=== PATIENT | female | born 1990 | race Caucasian/White ===

== ENCOUNTER 2016-10-25 20:47 | Emergency (ER) | payer OTHER, MEDICAID ==
--- NOTE | 2016-10-25 21:39 | ER Document Report ---
ED Medical Screen (RME) - General Stated Complaint: DIFFICULTY BREATHING Notes: 26 yo female brought to ED for difficulty breathing. 3 breathing treatment today, parent concerned pt is still wheezing. Dx with flu Sunday, taking Tamiflu presently pt has hx/o asthma, Down's syndrome, hypothyroid pt currently clear. Sat 100% TRAVEL OUTSIDE OF THE [place] IN LAST 30 DAYS: No Past Medical History Pulmonary Medical History: Reports: Hx Asthma, Hx Bronchitis, Hx Pneumonia Endocrine Medical History: Reports: Hx Hypothyroidism Skin Medical History: Reports Hx Eczema Past Surgical History: Reports: Hx Tonsillectomy - & adenoids Physical Exam - Vital signs Vitals: Temp Pulse Resp BP Pulse Ox 97.8 F 95 16 117/97 H 100 10/25/16 21:19 10/25/16 21:19 10/25/16 21:19 10/25/16 21:19 10/25/16 21:19 Course - Vital Signs Vital signs: Temp Pulse Resp BP Pulse Ox 97.8 F 95 16 117/97 H 100 10/25/16 21:19 10/25/16 21:19 10/25/16 21:19 10/25/16 21:19 10/25/16 21:19
[2016-10-26] MEDS ORDERED: PREDNISONE 20 MG TABLET PO ONE ×2 (00:09→04:36)
[2016-10-26] MEDS ORDERED: IPRATROPIUM/ALBUTEROL 0.5-2.5 MG/3 ML AMPUL NEB ONE (00:09)
[2016-10-26] MEDS ORDERED: ALBUTEROL SULFATE 0.083% NEB 2.5 MG/3 ML AMPUL NEB SCH (00:24)
--- NOTE | 2016-10-26 03:45 | ER Document Report ---
HPI - HPI Patient complains to provider of: wheeze Onset: This afternoon Onset/Duration: Sudden Quality of pain: Achy Severity: Moderate Pain Level: 4 Context: Parents present with adult child with Down syndrome for complaints of respiratory distress wheeze. Mother reports child recently treated for the flu with Tamiflu. She reports child started complaining pain to her back. When that happens she usually needs a breathing treatment. Mom reports she started wheeze. She's received several breathing treatments at home and here. Mom reports no fever today but did have fever on October 23. Denies vomiting diarrhea. Associated Symptoms: None, Fever - 10/23/16 Exacerbated by: Denies Relieved by: Denies Similar symptoms previously: Yes Recently seen / treated by doctor: Yes - REPRODUCTIVE LMP: 10-14-16 Reproductive: DENIES: : - DERM Skin Color: Normal Past Medical History - General Information source: Patient, Parent - Social History Smoking Status: Never Smoker Chew tobacco use (# tins/day): No Frequency of alcohol use: None Drug Abuse: None Lives with: Family Family History: Reviewed & Not Pertinent Patient has suicidal ideation: No Patient has homicidal ideation: No Pulmonary Medical History: Reports: Hx Asthma, Hx Bronchitis, Hx Pneumonia Endocrine Medical History: Reports: Hx Hypothyroidism Renal/ Medical History: Denies: Hx Peritoneal Dialysis Skin Medical History: Reports Hx Eczema Past Surgical History: Reports: Hx Tonsillectomy - & adenoids Vertical Provider Document - CONSTITUTIONAL Agree With Documented VS: Yes Exam Limitations: No Limitations General Appearance: WD/WN, No Apparent Distress - nontoxic - INFECTION CONTROL TRAVEL OUTSIDE OF THE [place] IN LAST 30 DAYS: No - HEENT HEENT: Atraumatic, Normocephalic. negative: Conjuctival Injection, Pharyngeal Exudate, Pharyngeal Tenderness, Pharyngeal Erythema, Tympanic Membrane Red, Tympanic Membrane Bulging - NECK Neck: Normal Inspection, Supple. negative: Lymphadenopathy-Left, Lymphadenopathy-Right - RESPIRATORY Respiratory: No Respiratory Distress, Wheezing - slight wheeze posterior O2 Sat by Pulse Oximetry: 100 - CARDIOVASCULAR Cardiovascular: Regular Rate - GI/ABDOMEN Gastrointestinal: Abdomen Soft, Abdomen Non-Tender - BACK Back: Normal Inspection - MUSCULOSKELETAL/EXTREMETIES Musculoskeletal/Extremeties: MAEW, FROM - NEURO Level of Consciousness: Awake, Alert, Appropriate Motor/Sensory: No Motor Deficit - DERM Integumentary: Warm, Dry, No Rash Course - Re-evaluation Re-evalutation: 10/26/16 Patient and parents instructed on steroids, neg chest x-ray. Child has taken them before. No respiratory distress respiratory rate even and unlabored. Mom was instructed to follow up with Dr. Lopez for recheck. She verbalized understanding. - Vital Signs Vital signs: Temp Pulse Resp BP Pulse Ox 97.8 F 95 16 117/97 H 100 10/25/16 21:19 10/25/16 21:19 10/25/16 21:19 10/25/16 21:19 10/25/16 21:19 - Diagnostic Test Radiology reviewed: Image reviewed, Reports reviewed - IMPRESSION: NO SIGNIFICANT RADIOGRAPHIC FINDING IN THE CHEST Discharge - Discharge Clinical Impression: Cough, Wheeze Condition: Stable Disposition: HOME, SELF-CARE Instructions: Steroid Medication Additional Instructions: *You have been evaluated for cough, wheeze *Increase fluid intake *Take medication as prescribed *Monitor your temperature, take Tylenol as indicated *Follow up with a primary care provider tomorrow for recheck *Return to ED for worsening condition, changes, needs Prescriptions: Prednisone [Deltasone 10 mg Tablet] 10 mg PO ASDIR PRN #15 tablet PRN Reason: Forms: Return to Work Referrals: CARMEN LOPEZ MD [Primary Care Provider] - Follow up tomorrow
[2016-10-26 04:54] VITALS: BP 102/64
== END 2016-10-26 04:54 | disposition home or self-care (01) ==
LOC: ER 20:47
DX: R06.2 Wheezing (principal); R05 Cough; Q90.9 Down syndrome, unspecified
CPT/HCPCS: 94640 ×2; 99284; 71020; J7512; J7620

== ENCOUNTER → 2017-02-23 | Outpatient (CLI) | payer OTHER, MEDICAID ==
[2017-02-23 09:54] LABS: ALANINE AMINOTRANSFERASE 24 U/L (9-52); ALKALINE PHOSPHATASE 56 U/L (38-126); ANION GAP 9 (5-19); ASPARTATE AMINO TRANSFERASE 28 U/L (14-36); BILIRUBIN,DIRECT 0.3 mg/dL (0.0-0.4); BILIRUBIN,TOTAL 0.7 mg/dL (0.2-1.3); BLOOD UREA NITROGEN 12 mg/dL (7-20); CALCIUM 8.7 mg/dL (8.4-10.2); CARBON DIOXIDE 27 mmol/L (22-30); CHLORIDE 105 mmol/L (98-107); CHOLESTEROL 174.41 mg/dL (0-200); CREATININE RESULT 0.66 mg/dL (0.52-1.25); Direct HDL 66 mg/dL (>40); GLUCOSE 87 mg/dL (75-110); POTASSIUM 4.6 mmol/L (3.6-5.0); SODIUM 141.2 mmol/L (137-145); TOTAL PROTEIN 7.3 g/dL (6.3-8.2); TRIGLYCERIDES 131 mg/dL (<150)
[2017-02-23 10:05] LABS: DIRECT LDL 84 mg/dL (<100)
[2017-02-23 10:23] LABS: THYROID STIMULATING HORMONE 1.22 uIU/mL (0.47-4.68)
== END ==
LOC: OD 08:10
PROVIDERS: ATTEND Pediatrics
DX: Q90.9 Down syndrome, unspecified (principal); R63.5 Abnormal weight gain
CPT/HCPCS: 36415; 80053; 80061; 82306; 82728; 83036; 84439; 84443

== ENCOUNTER 2017-05-09 07:36 | Emergency (ER) | payer OTHER, MEDICAID ==
--- NOTE | 2017-05-09 07:52 | ER Document Report ---
ED General - General Information source: Parent TRAVEL OUTSIDE OF THE [place] IN LAST 30 DAYS: No - HPI Onset: Other - 05/06/17 Associated symptoms: Other - see above <NATALIE BRANCH - Last Filed: 05/09/17 11:47> <REECE MEAD - Last Filed: 05/09/17 11:56> - General Stated Complaint: ANXIETY Time Seen by Provider: 05/09/17 07:44 Notes: Patient is a 27 year old female with a Hx of Down Syndrome who presents tot he ED with complaints of having a panic attack since Sunday. Patient has never had this in the past. Patients parents state that the they had been able to get the patient calmed down enough to sleep up until 2 days ago[address] They saw Dr. Lopez on Sunday who took the patient off of Doxycycline because he thought that was the cause of this. Patient was on Doxycycline and Lamasil for a rash on her buttocks that they believe is a fungal infection, she has seen a Information Technology Coordinator for this. (NATALIE BRANCH) The parents report that the patient's behavior changed about 2 weeks ago from her normal happy smiling self. She began this anxiety panic type behavior flapping her arms and hands and screaming out in a very high voice 2-3 days ago. She was seen in the office on Sunday. (REECE MEAD) - Related Data Allergies/Adverse Reactions: No Known Allergies Allergy (Unverified 10/25/16 21:36) Home Medications: Current Home Medications Albuterol Sulfate [Proair Hfa Inhalation Aerosol 8.5 gm Mdi] 2 puff IH Q4 PRN [History] Albuterol Sulfate [Ventolin 0.042% Neb 1.25 mg/3 ml Ampul] 1 vial NEB Q4 PRN [History] Beclomethasone Dipropionate [Qvar] 2 puff IH BID 05/09/17 [History] Cetirizine HCl 10 mg PO DAILY 05/09/17 [History] Chlorpheniramine Maleate [Chlortabs] 4 mg PO DAILY 05/09/17 [History] Clotrimazole/Betamethasone Dip [Clotrimazole-Betamethasone Crm] 1 applic TOP BID PRN 05/09/17 [History] Doxycycline Hyclate [Doxycycline Hyclate] 100 mg PO BID 05/09/17 [History] Fluticasone Furoate [Flonase Sensimist] 9.9 ml NS DAILY PRN 05/09/17 [History] Levothyroxine Sodium [Synthroid 0.05 mg Tablet] 0.05 mg PO DAILY 05/09/17 [ History] Norelgestromin/Ethin.estradiol [Xulane Patch] 1 each TOP DAILY 05/09/17 [History ] Terbinafine HCl 250 mg PO DAILY 05/09/17 [History] Past Medical History - General Information source: Patient - Social History Smoking Status: Never Smoker Family History: Reviewed & Not Pertinent Pulmonary Medical History: Reports: Hx Asthma, Hx Bronchitis, Hx Pneumonia Neurological Medical History: Reports: Other - Down Syndrome Endocrine Medical History: Reports: Hx Hypothyroidism Renal/ Medical History: Denies: Hx Peritoneal Dialysis Skin Medical History: Reports Hx Eczema Past Surgical History: Reports: Hx Tonsillectomy - & adenoids <NATALIE BRANCH - Last Filed: 05/09/17 11:47> Review of Systems - Review of Systems Constitutional: No symptoms reported EENT: No symptoms reported Cardiovascular: No symptoms reported Respiratory: No symptoms reported Gastrointestinal: No symptoms reported Genitourinary: No symptoms reported Female Genitourinary: No symptoms reported Musculoskeletal: No symptoms reported Skin: No symptoms reported Hematologic/Lymphatic: No symptoms reported Neurological/Psychological: See HPI, Anxiety <NATALIE BRANCH - Last Filed: 05/09/17 11:47> Physical Exam - General General appearance: Alert, Anxious - HEENT Head: Normocephalic, Atraumatic Eyes: Normal Extraocular movements intact: Yes Pupils: PERRL - Respiratory Respiratory status: No respiratory distress Breath sounds: Normal - Cardiovascular Rhythm: Regular - Abdominal Distension: Distended - Back Back: Normal - Extremities General upper extremity: Normal inspection, Normal ROM General lower extremity: Normal inspection, Normal ROM - Psychological Associated symptoms: Anxious, Other - panicky,able to be redirected when someone brought a olga mouse doll and coloring book in, tried to talk to someone on the phone, repeats things - Skin Skin Temperature: Warm Skin Moisture: Dry Skin Color: Normal <NATALIE BRANCH - Last Filed: 05/09/17 11:47> - Vital signs Vitals: Pulse Resp BP Pulse Ox 139 H 24 H 151/89 H 100 05/09/17 07:44 05/09/17 07:44 05/09/17 07:44 05/09/17 07:44 Course - Laboratory Result Diagrams: 05/09/17 08:35 05/09/17 08:35 - Consults Dr. Lopez Time consulted: 11:47 <NATALIE BRANCH - Last Filed: 05/09/17 11:47> - Laboratory Result Diagrams: 05/09/17 08:35 05/09/17 08:35 - Diagnostic Test Radiology reviewed: Image reviewed, Reports reviewed - CT scan of the brain does not show any acute process. <REECE MEAD - Last Filed: 05/09/17 11:56> - Vital Signs Vital signs: Temp Pulse Resp BP Pulse Ox 139 H 24 H 151/89 H 100 05/09/17 07:44 05/09/17 07:44 05/09/17 07:44 05/09/17 07:44 - Laboratory Laboratory results interpreted by me: 05/09/17 05/09/17 05/09/17 08:35 08:35 08:35 MCV 104 H MCH 36.6 H Glucose 112 H Total Protein 8.3 H Urine Ketones TRACE H Urine Blood LARGE H - Consults Dr. Lopez Reason for consultation: 05/09/17 11:47 Discussed patient. He like the idea of Ativan sedation. He will call psych to make arrangements for the patient to be evaluated. (NATALIE BRANCH) Discharge <NATALIE BRANCH - Last Filed: 05/09/17 11:47> <REECE MEAD - Last Filed: 05/09/17 11:56> - Discharge Clinical Impression: Anxiety Condition: Stable Disposition: HOME, SELF-CARE Additional Instructions: I have discussed your daughter's case with Dr. Lopez. He is going to make arrangements for a psychiatric evaluation. In the meantime, we are going to prescribe the same medication she received here but at a lower dose to be given as needed for the same symptoms she was exhibiting today. RETURN TO THE EMERGENCY ROOM IF ANY NEW OR WORSENING SYMPTOMS. Prescriptions: Lorazepam [Ativan 0.5 mg Tablet] 0.5 mg PO Q6 PRN #20 tab PRN Reason: Anxiety Referrals: CARMEN LOPEZ MD [Primary Care Provider] - Follow up as needed Scribe Attestation: 05/09/17 11:54 I personally performed the services described in the documentation, reviewed and edited the documentation which was dictated to the scribe in my presence, and it accurately records my words and actions. (REECE MEAD) Scribe Documentation - Scribe Written by Michael:: michael Castano, 05/09/2017, [id number] acting as scribe for :: Rex <NATALIE BRANCH - Last Filed: 05/09/17 11:47>
[2017-05-09] MEDS ORDERED: LORAZEPAM 0.5 MG TABLET PO ONE (07:55)
[2017-05-09 08:45] LABS: ABSOLUTE BASOPHILS # (AUTO) 0.1 10^3/uL (0.0-0.2); ABSOLUTE LYMPHOCYTES (AUTO) 1.5 10^3/uL (0.5-4.7); ABSOLUTE MONOCYTES (AUTO) 0.3 10^3/uL (0.1-1.4); ABSOLUTE NEUT (AUTO) 3.3 10^3/uL (1.7-8.2); BASOPHILS % (AUTO) 1.1 % (0-2); EOSINOPHILS % (AUTO) 0.3 % (0-6); HEMATOCRIT 40.8 % (36.0-47.0); HEMOGLOBIN 14.3 g/dL (12.0-15.5); HGB HCT DIFFERENCE 2.1; MEAN CORPUSCULAR HEMOGLOBIN 36.6 pg (27.0-33.4); MEAN CORPUSCULAR HGB CONC 35.1 g/dL (32.0-36.0); MEAN CORPUSCULAR VOLUME 104 fl (80-97); MONOCYTES % (AUTO) 5.2 % (3-13); RED BLOOD COUNT 3.91 10^6/uL (3.72-5.28); RED CELL DISTRIBUTION WIDTH 12.7 % (11.5-14.0); SEGMENTED NEUTROPHILS % (AUTO) 64.4 % (42-78); WHITE BLOOD COUNT 5.2 10^3/uL (4.0-10.5)
[2017-05-09] MEDS ORDERED: LORAZEPAM 1 MG TABLET PO ONE (09:03)
[2017-05-09 09:08] LABS: ALANINE AMINOTRANSFERASE 27 U/L (9-52); ALBUMIN 4.6 g/dL (3.5-5.0); ALKALINE PHOSPHATASE 69 U/L (38-126); ANION GAP 14 (5-19); ASPARTATE AMINO TRANSFERASE 27 U/L (14-36); BILIRUBIN,DIRECT 0.3 mg/dL (0.0-0.4); BILIRUBIN,TOTAL 0.5 mg/dL (0.2-1.3); BLOOD UREA NITROGEN 13 mg/dL (7-20); CALCIUM 9.2 mg/dL (8.4-10.2); CARBON DIOXIDE 22 mmol/L (22-30); CHLORIDE 106 mmol/L (98-107); CREATININE RESULT 0.67 mg/dL (0.52-1.25); GLUCOSE 112 mg/dL (75-110); POTASSIUM 3.7 mmol/L (3.6-5.0); SODIUM 141.7 mmol/L (137-145); TOTAL PROTEIN 8.3 g/dL (6.3-8.2)
[2017-05-09 09:16] LABS: APPEARANCE,URINE CLEAR; BILIRUBIN,URINE NEGATIVE (NEGATIVE); GLUCOSE, URINE NEGATIVE (NEGATIVE); KETONES,URINE TRACE mg/dL (NEGATIVE); LEUKOCYTE ESTERASE,URINE NEGATIVE (NEGATIVE); NITRITE,URINE NEGATIVE (NEGATIVE); PROTEIN,URINE NEGATIVE (NEGATIVE); URINE SPECIFIC GRAVITY 1.015; UROBILINOGEN,URINE NEGATIVE mg/dL (<2.0)
[2017-05-09 09:25] LABS: FREE T3 4.21 pg/mL (2.77-5.27)
[2017-05-09 09:45] LABS: THYROID STIMULATING HORMONE 2.53 uIU/mL (0.47-4.68)
--- NOTE | 2017-05-09 10:40 | RADIOLOGY REPORT (SQ) ---
EXAM DESCRIPTION: CT HEAD WITHOUT COMPLETED DATE/TIME: 05/09/2017 10:14 am REASON FOR STUDY: recent behavioral changes, Down's syndrome COMPARISON: None. TECHNIQUE: Axial images acquired through the brain without intravenous contrast. Images reviewed wi th bone, brain and subdural windows. Images stored on PACS. All CT scanners at this facility use dose modulation, iterative reconstruction, and/or weight based d osing when appropriate to reduce radiation dose to as low as reasonably achievable (ALARA). [facility]: Dose Right [facility]: CareDose [facility]: Dose Right [facility]: Teradose 4D [facility]: Smart FABPulous RADIATION DOSE: Up-to-date CT equipment and radiation dose reduction techniques were employed. CTDIv ol: 64.6 mGy. DLP: 1034 mGy-cm. mGy. LIMITATIONS: Motion artifact throughout the study FINDINGS: VENTRICLES: Normal size and contour. CEREBRUM: No masses. No hemorrhage. No midline shift. No evidence for acute infarction. Normal gra y/white matter differentiation. No areas of low density in the white matter. CEREBELLUM: No masses. No hemorrhage. No alteration of density. No evidence for acute infarction. EXTRAAXIAL SPACES: No fluid collections. No masses. ORBITS AND GLOBE: No intra- or extraconal masses. Normal contour of globe without masses. CALVARIUM: No fracture. PARANASAL SINUSES: No fluid or mucosal thickening. SOFT TISSUES: No mass or hematoma. OTHER: No other significant finding. IMPRESSION: Motion artifact. No acute changes COMMENT: Quality ID # [id number]: Final reports with documentation of one or more dose reduction techniques (e.g., Automated exposure control, adjustment of the mA and/or kV according to patient size, use of iterative reconstruction technique) TECHNICAL DOCUMENTATION: JOB ID: [id number]- All Rights Reserved
[2017-05-09 12:18] VITALS: BP 95/44
== END 2017-05-09 12:19 | disposition home or self-care (01) ==
LOC: ER 07:36
DX: F41.9 Anxiety disorder, unspecified (principal); Q90.9 Down syndrome, unspecified; J45.909 Unspecified asthma, uncomplicated
CPT/HCPCS: 36415; 70450; 80053; 81001; 84439; 84443; 84481; 85025; 99284

== ENCOUNTER → 2017-05-18 | Outpatient (CLI) | payer OTHER, MEDICAID ==
[2017-05-18 09:49] LABS: CHOLESTEROL 189.08 mg/dL (0-200); Direct HDL 78 mg/dL (>40); GLUCOSE 84 mg/dL (75-110); TRIGLYCERIDES 111 mg/dL (<150)
[2017-05-18 10:00] LABS: DIRECT LDL 80 mg/dL (<100)
== END ==
LOC: OD 08:41
PROVIDERS: ATTEND Psychiatry & Neurology Psychiatry
DX: F41.9 Anxiety disorder, unspecified (principal); Z79.899 Other long term (current) drug therapy
CPT/HCPCS: 36415; 80061; 82947; 83036; 84443

== ENCOUNTER 2018-01-22 13:14 | Emergency (ER) | payer MEDICARE, OTHER, MEDICAID ==
[2018-01-22] MEDS ORDERED: LORAZEPAM 1 MG TABLET PO ONE (14:35)
--- NOTE | 2018-01-22 14:35 | ER Document Report ---
ED General - General Chief Complaint: Psych Problem Stated Complaint: PSYCH EVAL Time Seen by Provider: 01/22/18 14:15 Notes: Chief complaint: Crying and frightened History of complain:( obtained from----patient) 27 years old female with a Down syndrome, parents were watching somewhat violent show on TV, she got frightened around 7:00 and started crying since then she has been crying nonstop. Therefore she was brought to the ED. The guitar repair technician indicated me in writing quietly that she could communicate with the Down syndrome patients and the patient has indicated that she was frightened saying violent episodes. No history could be obtained directly from the patient. As she is crying all the time Onset: Last night 7:00 Duration: Over 12 hours Severity: Moderate to severe Quality: Not applicable Context: Watching violent seen Exacerbating factor and relieving factors: None REVIEW OF SYSTEMS: CONSTITUTIONAL : Denies fever, chills, or sweats. Denies recent illness. EENT: Denies eye, ear, throat, or mouth pain or symptoms. Denies nasal or sinus congestion or discharge. Denies throat, tongue, or mouth swelling or difficulty swallowing. CARDIOVASCULAR: Denies chest pain. Denies palpitations or racing or irregular heart beat. Denies ankle edema. RESPIRATORY: Denies cough, cold, or chest congestion. Denies shortness of breath, difficulty breathing, or wheezing. GASTROINTESTINAL: Denies distention. Denies nausea, vomiting, or diarrhea. Denies blood in vomitus, stools, or per rectum. Denies black, tarry stools. Denies constipation. GENITOURINARY: Denies difficulty urinating, painful urination, burning, frequency, blood in urine, or discharge. FEMALE GENITOURINARY: Denies vaginal bleeding, heavy or abnormal periods, irregular periods. Denies vaginal discharge or odor. MUSCULOSKELETAL: Denies back or neck pain or stiffness. Denies joint pain or swelling. SKIN: Denies rash, lesions or sores. HEMATOLOGIC : Denies easy bruising or bleeding. LYMPHATIC: Denies swollen, enlarged glands. NEUROLOGICAL: Denies confusion or altered mental status. Denies passing out or loss of consciousness. Denies dizziness or lightheadedness. Denies headache. Denies weakness or paralysis or loss of use of either side. Denies problems with gait or speech. Denies sensory loss, numbness, or tingling. Denies seizures. PSYCHIATRIC: Denies anxiety or stress. Denies depression, suicidal ideation, or homicidal ideation. ALL OTHER SYSTEMS REVIEWED AND NEGATIVE. PHYSICAL EXAMINATION: GENERAL: Well-appearing, well-nourished and in no acute distress. Down facies crying HEAD: Atraumatic, normocephalic. EYES: Pupils equal round and reactive to light, extraocular movements intact, conjunctiva are normal. ENT: Nares patent, oropharynx clear without exudates. Moist mucous membranes. NECK: Normal range of motion, supple without lymphadenopathy LUNGS: Breath sounds clear to auscultation bilaterally and equal. No wheezes rales or rhonchi. HEART: Regular rate and rhythm without murmurs ABDOMEN: Soft, nontender, nondistended abdomen. No guarding, no rebound. No masses appreciated. Examination of genitals-deferred Musculoskeletal: Normal range of motion, no pitting or edema. No cyanosis. NEUROLOGICAL: Cranial nerves grossly intact. Normal speech, normal gait. Normal sensory, motor exams PSYCH: Normal mood, normal affect. SKIN: Warm, Dry, normal turgor, no rashes or lesions noted. Dictation was performed using [employer] voice recognition software crying frightened TRAVEL OUTSIDE OF THE [place] IN LAST 30 DAYS: No - Related Data Allergies/Adverse Reactions: Bleach (Sodium Hypochlorite) Adverse Reaction (Verified 01/22/18 14:22) Past Medical History - Social History Smoking Status: Never Smoker Chew tobacco use (# tins/day): No Frequency of alcohol use: None Drug Abuse: None Family History: Reviewed & Not Pertinent Patient has suicidal ideation: No Patient has homicidal ideation: No Pulmonary Medical History: Reports: Hx Asthma, Hx Bronchitis, Hx Pneumonia Endocrine Medical History: Reports: Hx Hypothyroidism Renal/ Medical History: Denies: Hx Peritoneal Dialysis Skin Medical History: Reports Hx Eczema Past Surgical History: Reports: Hx Tonsillectomy - & adenoids Review of Systems - Review of Systems Notes: Dictated Physical Exam - Vital signs Vitals: Temp Pulse Resp BP Pulse Ox 98.0 F 124 H 20 147/75 H 97 01/22/18 13:21 01/22/18 13:21 01/22/18 13:21 01/22/18 13:21 01/22/18 13:21 - Notes Notes: Dictated Course - Vital Signs Vital signs: Temp Pulse Resp BP Pulse Ox 98.0 F 124 H 20 147/75 H 97 01/22/18 13:21 01/22/18 13:21 01/22/18 13:21 01/22/18 13:21 01/22/18 13:21
--- NOTE | 2018-01-22 16:29 | PSYCHOLOGICAL NOTE ---
Psych Note - Psych Note Psych Note: Reason for consult: [facility] brought patient in, Mood lability (uncontrolled crying, inappropriate laughing, appeared almost like anxiety/panic attack) Contact Permissions: Mother/Guardian Nyla and Father at bedside Patient is a 27 year old female who presented to the ED today via parents and [facility] after not being able to control emotions (anxiety, crying) with poor success from parents and [facility] worker in trying to de-escalate. Observed patient crying, breathing heavy (unsure if anxiety related, due to crying so hard so long or combination), and some mood lability (crying, flat). She was so choked up she could hardly talk. Patient was alert and oriented to person, place and situation. Mood was irritable with congruent affect initially and after a few hours he de-escalated to his baseline (happy, easy going, easily redirected, engaged and interactive) . He mentioned HI (typical statement/threat when patient is angry/upset/ frustrated, has not reported any plans or taken action and once he calms ( typically see him when he has already calmed down from crisis event) he admits to making statements/threats and not meaning them. He denied SI and this was never a presenting concern. He did not appear to be responding to internal stimuli as evidenced by fair eye contact (even when upset), answering questions when addressed, appropriately letting clinician know when he didnt want to talk anymore, staying on topic, and carrying on dialogue conversation (more so towards end of stay after he had de-escalated). [facility] worker, Lelo, provided copy of her report and other pertinent information from her interactions/assessments. She stated she had been with patient since 1030 this morning who had been presenting the same way as was in ED (appeared as if having anxiety or panic attack, crying uncontrollably). She stated per parents the labile mood started last night at 1900. She stated there is one other similar incident that took place April 2017. [facility] worker stated patient was so upset she had stopped talking and started utilizing broken sign language. She stated patient was signing things like hurt me, trouble, sorry, hit 4 times. She stated body language between patient and mother was questionable (patient had looked to mother when asked who hurt/hit her and reportedly withdrew body inward when mother went to touch her). Note this clinician observed interactions between mother and patient that was more related to parents enabling patient via trying to comfort her with patient having what is considered an appropriate with no inward withdraw body language. Patients parents present at bedside. Mother reported she is legal guardian. Parents stated the first episode like this in April 2017 was thought to be due to a medication (per chart review Doxycycline). They stated patient cycles between laughing and crying at what seems like inappropriate time with unknown trigger. Mother stated patient had been going to [facility] for medications and therapy but was discharged from all services by September due to the agency feeling like they werent effective and patient needed more intensive care. She stated patients PCM, Dr. Fabian, can no longer see patient because [facility] did not reinstate Medicaid in time, Patient now has Medicaid and she also has [facility] both of which the PCM does not take. 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 Mother stated she has been in contact with Lidia from [facility] who told her [facility] should have contacted them for a higher level of care referral. They stated the episode began last evening around 1900, she was able to calm down some by 2200, went to sleep by 0100 and then was up again at 0300 and up throughout the morning (now adding minimal sleep in the last 24 hours). [facility] Behavioral Health team contacted [facility]. Patients Purchasing Assistant is Lidia who provided diagnoses most related to all levels of severity of IDD, asthma and allergies (see [facility] Informed [facility] Behavioral Health team would make a [facility] referral. Made a referral to [facility] ( ). Spoke to John Coppola. He was made aware of [facility] Purchasing Assistant, Diagnoses from [facility], patient has [employer], [facility] [place] services, insurance issue with timely reinstatement addition of Medicare which effected PCMs ability to continue to treat patient, patient had services with [facility] but they discharged saying she need more intensive treatment, patient not being on medication for several months and basic demographic information with contact information for mother/ reported legal guardian. He asked that any clinician paperwork be faxed to them at [phone]. Martha ([phone]) from [facility] was present for a check in with patient and family. She confirmed currently patient has supportive employment, day treatment and likely respite services from them. She stated there has not been talk or information provided to parents about their care home living options as they had not known parents were interested. She provided a route sales delivery drivers supervisor contact information (Keisha, general number for [facility] [place], ext [phone]). Diagnosis: 318.0 (F71) Intellectual Disability (Intellectual Developmental Disorder), Moderate 311 (F32.9) Unspecified Depressive Disorder 300.00 (F41.9) Unspecified Anxiety Disorder Impression/Plan: Recommendation to hold patient overnight to begin medication regimen. She appeared to be having anxiety, had a similar episode April 2017 , has a diagnosis of Down Syndrome and given this diagnosis want to monitor while starting new medications (also because of this diagnosis she is not appropriate for regular inpatient psychiatric hospitalization). [facility] behavioral Health team spoke to Lidia Purchasing Assistant from [facility] (via telephone), Martha embedded case manager from [facility] (in person, cell, can call office during business hours ext [phone] for Keisha) and John Coppola (via telephone , ) from Psychiatric hospital to make referral for their systemic consultation. Consulted with Dr. Sams regarding the management and care of patient. ED Physician in agreement with recommendations. Medication recommendations made by the psychiatric medical provider, Dr. Myriam NORTON, include: Add Zyprexa 5MG IM once-now for mood stabilization and impulse control Add Zyprexa 5MG PO twice a day for mood stabilization and impulse control Add Cogentin 1MG PO daily to curb possible tremors associated with antipsychotic medications Add Prozac 20MG PO daily for depression
[2018-01-22] MEDS ORDERED: OLANZAPINE INJ/PF 10 MG SDV IM ONE (17:27)
[2018-01-22] MEDS ORDERED: FLUOXETINE HCL 20 MG CAPSULE PO SCH (17:30)
[2018-01-22] MEDS ORDERED: BENZTROPINE MESYLATE 1 MG TABLET PO SCH (17:30)
[2018-01-22 19:17] LABS: APPEARANCE,URINE CLEAR; BILIRUBIN,URINE NEGATIVE (NEGATIVE); COLOR,URINE YELLOW; GLUCOSE, URINE NEGATIVE (NEGATIVE); KETONES,URINE NEGATIVE (NEGATIVE); LEUKOCYTE ESTERASE,URINE NEGATIVE (NEGATIVE); NITRITE,URINE NEGATIVE (NEGATIVE); PROTEIN,URINE NEGATIVE (NEGATIVE); URINE SPECIFIC GRAVITY 1.012; UROBILINOGEN,URINE NEGATIVE mg/dL (<2.0)
[2018-01-22 19:21] LABS: URINE AMPHETAMINES SCREEN NEGATIVE; URINE BARBITURATES SCREEN NEGATIVE; URINE BENZODIAZEPINES SCREEN NEGATIVE; URINE COCAINE SCREEN NEGATIVE; URINE MARIJUANA (THC) SCREEN NEGATIVE; URINE METHADONE SCREEN NEGATIVE; URINE PHENCYCLIDINE SCREEN NEGATIVE
[2018-01-22 19:48] LABS: ABSOLUTE BASOPHILS # (AUTO) 0.1 10^3/uL (0.0-0.2); ABSOLUTE LYMPHOCYTES (AUTO) 1.9 10^3/uL (0.5-4.7); ABSOLUTE MONOCYTES (AUTO) 0.6 10^3/uL (0.1-1.4); BASOPHILS % (AUTO) 1.2 % (0-2); EOSINOPHILS % (AUTO) 0.1 % (0-6); HEMATOCRIT 38.6 % (36.0-47.0); HEMOGLOBIN 13.1 g/dL (12.0-15.5); LYMPHOCYTES % (AUTO) 25.2 % (13-45); MEAN CORPUSCULAR VOLUME 103 fl (80-97); MONOCYTES % (AUTO) 7.4 % (3-13); PLATELET COUNT 323 10^3/uL (150-450); RED BLOOD COUNT 3.74 10^6/uL (3.72-5.28); RED CELL DISTRIBUTION WIDTH 13.2 % (11.5-14.0); SEGMENTED NEUTROPHILS % (AUTO) 66.1 % (42-78); TOTAL CELLS COUNTED % (AUTO) 100 %; WHITE BLOOD COUNT 7.6 10^3/uL (4.0-10.5)
[2018-01-22] MEDS: OLANZAPINE 5 MG TABLET PO SCH (19:54)
[2018-01-22 20:08] LABS: ALANINE AMINOTRANSFERASE 27 U/L (9-52); ALBUMIN 4.1 g/dL (3.5-5.0); ALKALINE PHOSPHATASE 57 U/L (38-126); ANION GAP 11 (5-19); ASPARTATE AMINO TRANSFERASE 24 U/L (14-36); BILIRUBIN,DIRECT 0.2 mg/dL (0.0-0.4); BILIRUBIN,TOTAL 0.6 mg/dL (0.2-1.3); BLOOD UREA NITROGEN 11 mg/dL (7-20); CARBON DIOXIDE 24 mmol/L (22-30); CHLORIDE 106 mmol/L (98-107); GLUCOSE 107 mg/dL (75-110); POTASSIUM 4.1 mmol/L (3.6-5.0); SODIUM 141.1 mmol/L (137-145); TOTAL PROTEIN 7.4 g/dL (6.3-8.2)
[2018-01-22 20:10] LABS: ACETAMINOPHEN < 10 ug/mL (10-30); ALCOHOL < 10 mg/dL (NONE DETECTED); SALICYLATE < 1.0 mg/dL (2.0-20.0)
--- NOTE | 2018-01-22 20:49 | ER Document Report ---
ED Psych Disorder / Suicide - General Chief Complaint: Psych Problem Stated Complaint: PSYCH EVAL Time Seen by Provider: 01/22/18 14:15 Notes: Patient with a history of Down syndrome brought in by her parents because of uncontrollable episodes of alternating crying and laughter. They say that the first episode occurred last fall, in April, and since that time she has been thoroughly worked up with CT scans of her head, MRI of her head, various lab studies, etc. No abnormalities have been found. She was being seen by a counselor at [facility], but they said there was nothing else they can do for the patient and discharged her. When she was first seen here for this condition, she was given lorazepam for anxiety which seemed to help for a short time. This particular episode started last night when the patient watch some very difficult, graphic scenes from the wars on the programs were celebrating . Ever since then, she is been sobbing, mostly crying, but occasionally having laughter. Her only other history is of asthma. TRAVEL OUTSIDE OF THE [place] IN LAST 30 DAYS: No - Related Data Allergies/Adverse Reactions: Bleach (Sodium Hypochlorite) Adverse Reaction (Verified 01/22/18 14:22) Past Medical History - Social History Smoking Status: Never Smoker Chew tobacco use (# tins/day): No Frequency of alcohol use: None Drug Abuse: None Family History: Reviewed & Not Pertinent Patient has suicidal ideation: No Patient has homicidal ideation: No Pulmonary Medical History: Reports: Hx Asthma, Hx Bronchitis, Hx Pneumonia Endocrine Medical History: Reports: Hx Hypothyroidism Renal/ Medical History: Denies: Hx Peritoneal Dialysis Skin Medical History: Reports Hx Eczema Past Surgical History: Reports: Hx Tonsillectomy - & adenoids Review of Systems - Review of Systems -: Yes ROS unobtainable due to patient's medical condition Physical Exam - Vital signs Vitals: Temp Pulse Resp BP Pulse Ox 98.0 F 124 H 20 147/75 H 97 01/22/18 13:21 01/22/18 13:21 01/22/18 13:21 01/22/18 13:21 01/22/18 13:21 Interpretation: Tachycardic - Mild - Notes Notes: PHYSICAL EXAMINATION: GENERAL: Almost constant sobbing and crying. Vital signs are all essentially normal except for slight tachycardia. HEAD: Atraumatic, normocephalic. EYES: Pupils equal round and reactive to light, extraocular movements intact. ENT: oropharynx clear without exudates. Moist mucous membranes. NECK: Normal range of motion, supple. LUNGS: Breath sounds clear and equal bilaterally. HEART: Regular rate and rhythm without murmurs. ABDOMEN: Soft, nontender. No guarding or rebound. No masses. BACK: No tenderness throughout entire back. EXTREMITIES: Normal range of motion without pain. NEUROLOGICAL: Normal speech, normal gait. Normal sensory, motor, and reflex exams. Awake, alert, and oriented x3. Cranial nerves normal. SKIN: Warm, dry, no rashes. Course - Vital Signs Vital signs: Temp Pulse Resp BP Pulse Ox 98.0 F 124 H 20 147/75 H 97 01/22/18 13:21 01/22/18 13:21 01/22/18 13:21 01/22/18 13:21 01/22/18 13:21 - Laboratory Result Diagrams: 01/22/18 19:18 01/22/18 19:18 Laboratory results interpreted by me: 01/22/18 01/22/18 19:18 19:18 MCV 103 H MCH 35.0 H Salicylates < 1.0 L Acetaminophen < 10 L Discharge - Discharge Referrals: EB HOOD, STEW[facility] [Primary Care Provider] - Follow up as needed
[2018-01-23] MEDS ORDERED: LEVOTHYROXINE SODIUM 0.05 MG TABLET PO SCH (06:00)
[2018-01-23] MEDS: OLANZAPINE 5 MG TABLET PO SCH (09:26)
--- NOTE | 2018-01-23 10:12 | ER Document Report ---
Doctor's Note Notes: 01/23/18 10:10 Rounds: Chart reviewed and patient's family interviewed. Patient is somewhat better and less tearful and crying today. Lab studies were all normal. Vital signs of all been normal. Patient received 2 mg of Ativan p.o. yesterday afternoon and an injection of Zyprexa 5 mg last evening and now on 5 mg twice a day p.o. Appears to be significantly calmer and less emotional today. Patient appears to be medically stable for transfer or discharge. Jeff Larson MD
--- NOTE | 2018-01-23 13:58 | PSYCHOLOGICAL NOTE ---
Psych Note - Psych Note Psych Note: Reason for consult: Re-evaluation, [facility] brought patient in, Mood lability ( uncontrolled crying, inappropriate laughing, appeared almost like anxiety/panic attack) Contact Permissions: Mother/Guardian Nyla and Father at bedside Patient is a 27 year old female who is in the ED overnight due to mood lability (crying, laughing, flat) over the past 2 days and starting a medication regimen last evening. Today she answered questions with appropriate verbal responses that were short and close ended in nature. She responded much better when asked how she was feeling. Parents noted she had a couple crying moments today. Patient had one near end of assessment and father noted she knows we are talking about her and that upsets her. Informed parents this is an example of a trigger. It also seemed like when patient wasnt getting the attention she started crying and pointed that out to parents. Parents initiated allowing patient to be part of decision making (if she wants to continue medication, where she wants to go for outpatient MH services). Attending nurse noted patient was fine when parents left for a bit but as soon as they are around she starts the mood lability stuff. She further noted parents seem to enable this by feeding into the behavior and babying patient. [facility] Behavioral Health team care coordinated with November [facility] via providing her fax number for [facility] so she can send clinical paperwork for referral and Lelo from [facility]. Diagnosis: 318.0 (F71) Intellectual Disability (Intellectual Developmental Disorder), Moderate 311 (F32.9) Unspecified Depressive Disorder 300.00 (F41.9) Unspecified Anxiety Disorder Impression/Plan: Patient is cleared from acute psychiatric services. She has a documented developmental disability, more often than not there is co-morbid MH diagnosis and she has not been medicated for several months. Started medication regimen last evening which she tolerated well. Assisted mother/guardian with making a medication appointment at [facility] with Dr. Ritchie on 01/29/2018 at 1400 ( will fax patient referral form to [facility] for care coordination purposes). [facility] continued care coordination with [facility] and provided [facility] contact information (specifically fax) to fax over clinical paperwork related to patient. Provided mother/guardian with outpatient resource sheet which documented appointment date and time, [facility] contact information and when to call them, as well as highlighted [facility] numbers. Coordinated with Lelo from [facility] ([phone]) since she was the one who brought patient to the ED. Patient already has an appointment with [facility] in [place] on 01/28/[address] [facility]. Consulted with Dr. Sams regarding the management and care of patient. ED Physician in agreement with recommendations.
[2018-01-23 14:39] VITALS: BP 119/82
== END 2018-01-23 14:42 | disposition home or self-care (01) ==
LOC: ER 13:14
DX: F32.9 Major depressive disorder, single episode, unspecified (principal); F41.9 Anxiety disorder, unspecified; Q90.9 Down syndrome, unspecified; J45.909 Unspecified asthma, uncomplicated
CPT/HCPCS: 99285; 96372; 36415; 80307 ×4; 85025; 80053; 81001; A9270 ×5